=== PATIENT | female | born 1955 | race Two or more races ===

== ENCOUNTER 2018-07-19 13:03 | Outpatient (CLI) | payer OTHER, MEDICAID ==
[~2018-07-19] VITALS: Ht 172.7 cm; Wt 102.5 kg
[2018-07-19 16:23] VITALS: BP 127/76
[2018-07-19] MEDS ORDERED: OMEPRAZOLE20 M2 ORAL (16:23)
[2018-07-19] MEDS ORDERED: TYLENOL EXTRA500 MG ORAL (16:23)
[2018-07-19] MEDS ORDERED: LOSARTAN POTASS50 MG ORAL (16:23)
[2018-07-19] MEDS ORDERED: OMEGA 3 1,0001 EACH PO (16:23)
--- NOTE | 2018-07-19 18:45 | Consultation ---
DATE OF CONSULTATION: 07/19/2018 CHIEF COMPLAINT: Esophageal submucosal lesion. HISTORY OF PRESENT ILLNESS: The patient is a very pleasant 63-year-old female, who had an endoscopy done by primary professional skateboarder based on the esophageal submucosal lesion and the patient was referred to us for the EUS. PAST MEDICAL HISTORY: History of colon polyps. ALLERGIES: No known drug allergies. MEDICATIONS: Please see medication reconciliation list. FAMILY HISTORY: No family history of GI malignancies. SOCIAL HISTORY: The patient denies any tobacco, alcohol, or drug abuse. PHYSICAL EXAMINATION: VITAL SIGNS: Temperature 97.9, blood pressure 127/76, pulse rate 85, respirations 20. HEENT: Normocephalic and atraumatic. Sclerae anicteric. NECK: Supple. No evidence of lymphadenopathy. CARDIOVASCULAR: Regular rate and rhythm. Plus S1 and S2. No obvious murmur. LUNGS: Clear to auscultation bilaterally. ABDOMEN: Positive bowel sounds. Soft and nontender. No rebound. No guarding. No peritoneal sign. EXTREMITIES: No cyanosis, no clubbing, no edema. ASSESSMENT: The patient is a 63-year-old female with esophageal submucosal lesion with EUS . PLAN: Schedule when authorization is obtained. Augusto Mercedes M.D. DR: Octavio JOB#: [id number] CC:
== END 2018-07-19 15:03 | disposition home or self-care (01) ==
LOC: PAN 13:03
DX: K22.9 Disease of esophagus, unspecified (principal); Z86.010 Personal history of colon polyps
CPT/HCPCS: 99202

== ENCOUNTER 2018-11-22 08:18 | Day surgery (SDC) | payer OTHER ==
[2018-11-22] VITALS (9 sets, daily range): BP systolic 112–131; BP diastolic 63–83
[~2018-11-22] VITALS: Ht 170.2 cm; Wt 107.0 kg
[~2018-11-22 08:18] MED LIST: LOSARTAN POTASS50 MG ORAL; OMEGA 3 1,0001 EACH PO; OMEPRAZOLE20 M2 ORAL; TYLENOL EXTRA500 MG ORAL
[2018-11-22] MEDS ORDERED: Alfentanil 2ml Inj ONE (08:19)
[2018-11-22] MEDS ORDERED: ATORVASTATIN CA20 MG ORAL (08:53)
[2018-11-22] MEDS ORDERED: VITAMIN D400 INTLU ORAL (08:53)
--- NOTE | 2018-11-22 09:07 | Short Stay Surgery H&P ---
History of Present Illness History of Present Illness Chief Complaint see recent office note HPI Aster Alvarado is a 63 year old female who was admitted on for GERD Patient History Allergies: Coded Allergies: LACTOSE (Verified Adverse Reaction, Mild, 11/22/18) ABD DISTENDED Medication History Scheduled Atorvastatin Calcium* (Atorvastatin Calcium*), 20 MG ORAL BEDTIME, (Reported) Losartan Potassium* (Losartan Potassium*), 100 MG ORAL DAILY, (Reported) Fithian-3 Fatty Acids/Fish Oil (Fithian 3 1,000 Mg Softgel), 1 EACH PO DAILY, ( Reported) Omeprazole (Omeprazole), 20 MG ORAL DAILY, (Reported) Vitamin D (Vitamin D3), 2,000 UNITS ORAL DAILY, (Reported) Scheduled PRN Acetaminophen* (Tylenol Extra Strength*), 500 MG ORAL Q8H PRN for Prn Headache/ Temp > 101, (Reported) Physical Exam Vital Signs Last Vital Signs Date Time Temp Pulse Resp B/P (MAP) Pulse Ox O2 Delivery O2 Flow Rate FiO2 11/22/18 08:58 Room Air 11/22/18 08:56 98.5 89 20 123/83 96 Plan Attestation Are the patient's medical conditions optimized for surgery? Augusto Mercedes MD Nov 22, 2018 09:07
--- NOTE | 2018-11-22 09:07 | Pre-Procedure Note/Attestation ---
Pre-Procedure Note/Attestation Complete Prior to Procedure Planned Procedure: not applicable Procedure Narrative: egd/eus Indications for Procedure Pre-Operative Diagnosis: esophageal sub mucosal lesion Attestation I attest that I discussed the nature of the procedure; its benefits; risks and complications; and alternatives (and the risks and benefits of such alternatives ), prior to the procedure, with the patient (or the patient's legal sales representative printing supplies). I attest that, if there was a reasonable possibility of needing a blood transfusion, the patient (or the patient's legal sales representative printing supplies) was given the [facility] standardized written summary, pursuant to the Renzo Tiffanie Blood Safety Act ([place] Health and Safety Code # 1645, as amended). I attest that I re-evaluated the patient just prior to the surgery and that there has been no change in the patient's H&P, except as documented below: Augusto Mercedes MD Nov 22, 2018 09:07
[2018-11-22] MEDS ORDERED: Heplock Flush 100 units/ml 3 ml syr ONE (09:42)
--- NOTE | 2018-11-22 09:44 | Anethesia Preoperative Eval ---
Anesthesia Pre-op PMH/ROS General Date of Evaluation: Nov 22, 2018 Time of Evaluation: 09:40 Anesthesiologist: Myriam Sood CRNA ASA Score: ASA 3 Mallampati Score Class I : Soft palate, uvula, fauces, pillars visible Class II: Soft palate, uvula, fauces visible Class III: Soft palate, base of uvula visible Class IV: Only hard plate visible Mallampati Classification: Class II Surgeon: Daren Diagnosis: GERD, esophageal submucosal cyst Surgical Procedure: EGD, EUS Anesthesia History: none Family History: no anesthesia problems Allergies: Coded Allergies: LACTOSE (Verified Adverse Reaction, Mild, 11/22/18) ABD DISTENDED Medications: see eMAR Patient NPO?: Yes NPO Date: Nov 22, 2018 NPO Time: 00:00 Past Medical History Cardiovascular: Reports: HTN, other - Hypercholesterolemia; Denies: CAD, CT, valve dz, arrhythmia Pulmonary: Denies: asthma, COPD, MARKO, other Gastrointestinal/Genitourinary: Reports: GERD, other - esophageal submucosal lesion, colon polyps; Denies: CRI, ESRD Neurologic/Psychiatric: Reports: other - migraines; Denies: dementia, CVA, depression/anxiety, TIA Endocrine: Denies: DM, hypothyroidism, steroids, other HEENT: Denies: cataract (L), cataract (R), glaucoma, [place] (L), [place] (R), other Hematology/Immune: Reports: anemia; Denies: DVT, bleeding disorder, other Musculoskeletal/Integumentary: Reports: OA; Denies: RA, DJD, DDD, edema, other Other: obesity PMH Narrative: as noted above PSxH Narrative: none Anesthesia Pre-op Phys. Exam Physician Exam Last Vital Signs Date Time Temp Pulse Resp B/P (MAP) Pulse Ox O2 Delivery O2 Flow Rate FiO2 11/22/18 08:58 Room Air 11/22/18 08:56 98.5 89 20 123/83 96 Constitutional: NAD Neurologic: other - alert & oriented Cardiovascular: RRR Respiratory: CTA Gastrointestinal: S/NT/ND Airway Exam Mallampati Score: Class II MO: full Neck: FROM TMD: > 3 FB ROM: full Teeth: intact Dentures: no upper, no lower Anesthesia Pre-op A/P Studies Pre-op Studies: EKG - NSR Risk Assessment & Plan Assessment: ASA 3, ok to proceed Plan: MAC Status Change Before Surgery: No Pre-Antibiotics Given Within 1 Hr of Incision: No Myriam Sood CRNA Nov 22, 2018 09:44
[2018-11-22] MEDS ORDERED: Propofol 200mg/20ml IV ONE (10:00)
--- NOTE | 2018-11-22 10:26 | Immediate Post-Op Evaluation ---
Immediate Post-Op Evalulation Immediate Post-Op Evalulation Procedure: EGD, EUS Date of Evaluation: Nov 22, 2018 Time of Evaluation: 10:22 IV Fluids: 500 ml 0.9 NS Blood Pressure Systolic: 116 Blood Pressure Diastolic: 78 Pulse Rate: 82 Respiratory Rate: 18 O2 Sat by Pulse Oximetry: 100 Temperature (Fahrenheit): 97.2 Pain Score (1-10): 0 Nausea: No Vomiting: Yes Complications none Patient Status: awake, patent Hydration Status: adequate Given Within 1 Hr of Incision: Myriam Dempsey CRNA Nov 22, 2018 10:26
--- NOTE | 2018-11-22 10:32 | Endoscopy Procedure Note ---
Endoscopy Procedure Note General Indication for Procedure: esoph sub mucosal lesion Procedures Performed: EGD, other - EUS Operative Findings/Diagnosis: same Specimen: none Pt Tolerated Procedure Well: Yes Estimated Blood Loss: none Anesthesia Anesthesiologist: jonathan Anesthesia: MAC Inserted Devices Implant(s) used?: No GI Core Measures 50 yrs or older w/o bx or poly: Not Applicable 10yrs. F/U recommended: Not Applicable Augusto Mercedes MD Nov 22, 2018 10:32
--- NOTE | 2018-11-22 11:53 | 48 Hour Post Anesthesia Eval ---
Post Anesthesia Evaluation Procedure: EGD, EUS Date of Evaluation: Nov 22, 2018 Time of Evaluation: 11:52 Blood Pressure Systolic: 123 0: 74 Pulse Rate: 80 Respiratory Rate: 20 Temperature (Fahrenheit): 97.2 O2 Sat by Pulse Oximetry: 96 Airway: patent Nausea: No Vomiting: No Pain Intensity: 0 Hydration Status: adequate Cardiopulmonary Status: stable Mental Status/LOC: patient returned to baseline Follow-up Care/Observations: per GI Post-Anesthesia Complications: none Follow-up care needed: ready to discharge Myriam Sood CRNA Nov 22, 2018 11:53
--- NOTE | 2018-11-22 17:45 | Procedure Note ---
DATE OF PROCEDURE: 11/22/2018 SURGEON: Augusto Mercedes M.D. PROCEDURE: Endoscopic ultrasound. ANESTHESIA: Per Myriam LANDEROS. INSTRUMENT: Olympus adult flexible upper endoscope and EUS scope. REASON FOR PROCEDURE: The procedure, risks, benefits, and possible consequences, including hemorrhage, aspiration, perforation and infection, and alternative treatments, were explained to the patient/legal guardian by Dr. Augusto Mercedes and the patient/legal guardian understood and accepted these risks. INDICATION: Esophageal submucosal lesion. DESCRIPTION OF PROCEDURE: After informed consent was obtained and the patient was adequately sedated, Olympus upper endoscope was advanced from mouth into second portion of duodenum and retroflexion was performed in the stomach. The patient had multiple gastric polyps, highly suspicious for fundic gland polyps. No biopsy was performed. The patient had a lesion in the distal esophagus few centimeter above the GE junction. This is most probably the submucosal lesion that was seen with an upper endoscope. We are going to proceed with EUS to evaluate for this. At this time, the EUS scope was introduced. Using a radial Olympus EUS scope, we scanned the distal esophagus. We saw this 8.9 mm lesion seems to be in the submucosal area. This seems to be anechoic, highly suspicious for duplicated cyst. No evidence of any filling defect in the cyst. No wall thickening. 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 At this time, the EUS was removed and procedure was terminated. SUMMARY OF FINDINGS: 1. 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 2. A 8.9 mm distal esophageal submucosal lesion, highly suspicious for duplicated cyst. RECOMMENDATIONS: The patient will benefit from repeat EGD and EUS in 2 years for follow up on this cyst. Augusto Mercedes M.D. DR: LENNIE JOB#: [id number] CC:
== END 2018-11-22 11:25 | disposition home or self-care (01) ==
LOC: GAS 08:18
DX: K31.7 Polyp of stomach and duodenum (principal); K22.9 Disease of esophagus, unspecified; K21.9 Gastro-esophageal reflux disease without esophagitis; Z91.011 Allergy to milk products; Z79.899 Other long term (current) drug therapy; I10 Essential (primary) hypertension; E78.00 Pure hypercholesterolemia, unspecified; E66.9 Obesity, unspecified; Z86.010 Personal history of colon polyps
CPT/HCPCS: 43231; 93005; J2704; J3490; Z7512; 94003; 94150